=== PATIENT | female | born 1965 | race Caucasian/White ===

== ENCOUNTER 2018-05-14 18:27 | Emergency (ER) | payer OTHER ==
[~2018-05-14 18:27] MED LIST: IOPAMIDOL (ISOVUE-300) 100 ML BTL ONE
[2018-05-14 19:05] LABS: PLATELET COUNT 313 10^3/uL (150-400)
[2018-05-14 19:14] LABS: INR 0.99 (0.83-1.16); PROTIME(PATIENT) 13.3 SEC (12.0-15.0)
--- NOTE | 2018-05-14 19:52 | EDPHY ---
H & P Time Seen by Provider: 05/14/18 18:58 HPI/ROS: HPI Left flank pain. 52-year-old female by private vehicle. She reports that about 3 weeks ago after a viral upper respiratory infection she developed left flank pain. She reports the pain is steadily been getting worse over that period of time. She reports over the last 2-3 days a got significantly worse and she has not been able to sleep the last 1-2 nights because of this pain. She describes it as dull and aching and radiating around to her left mid abdomen and left lower quadrant. She has not had any nausea or vomiting with it. Denies any urinary complaints. No gross hematuria. Denies diarrhea. No bloody or melenic stool. Last bowel movement yesterday. She was evaluated at the [facility] by Dr. Infante. He ordered a CT with and without contrast of her abdomen and pelvis. She was here to obtain at test but the technicians could not obtain an IV. She was therefore sent to the emergency department for evaluation. An IV was easily placed here. We will work her up further and obtain her CT imaging. She endorses. ROS: Constitutional: No fever, no chills. No weakness. Eyes: No discharge. No changes in vision. ENT: No sore throat. No nasal congestion or rhinorrhea. Respiratory: No cough. No shortness of breath. Cardiac: No chest pain, no palpitations. Gastrointestinal: As above, no vomiting, no diarrhea. Genitourinary: No hematuria. No dysuria or increased frequency with urination. Musculoskeletal: As above. No neck pain. No myalgias or arthralgias. Skin: No rashes. Neurological: No headache. No focal weakness or altered sensation. Past medical history: No significant past medical history. She is not on any prescription medications. Social history: Nonsmoker. No alcohol. Here by herself. Physical Exam: General Appearance: Alert, she is not in distress. This patient is responding to questions appropriately and in full sentences. This patient appears well- hydrated and well-nourished. Eyes: Pupils equal and round no pallor or injection. No lid edema, erythema or injection. Respiratory: There are no retractions, lungs are clear to auscultation with good air movement bilaterally. Cardiovascular: Regular rate and rhythm. No murmur. Gastrointestinal: Abdomen is soft and nontender, no masses, bowel sounds normal. No focal tenderness at McBurney's point. No Prater sign. Back exam: No midline thoracic, lumbar, sacral tenderness on palpation. She does have vague pain involving palpation over the left sacroiliac joint. No soft tissue changes. No erythema, edema, warmth or ecchymosis noted. She has a negative same side and cross side straight leg raise test. She is neurologically intact in all myotomes in dermatomes of the bilateral lower extremities. Neurological: Motor sensory function is grossly intact. Cranial nerves are normal. Gait is normal. Skin: Warm and dry, no rashes. Musculoskeletal: Neck is supple and nontender. Vague left-sided CVA tenderness on palpation. No right-sided CVA tenderness on palpation. Extremities are symmetrical. All joints range without pain or impingement. Psychiatric: No agitation. No depression. Database: EKG: Imaging: CT abdomen and pelvis with and without contrast: Essentially negative study. She has significant constipation proximally. No evidence of ureteral stone or other significant pathology. Results were discussed with staff radiologist Dr. Sherman Ndiaye. Procedures: Emergency department course: Triage vital signs reviewed and are normal. IV placed in the emergency department. She was started on IV normal saline with 500 cc to be given over the next hour. She declines pain medication or antiemetics at this time. She will be sent for CT imaging shortly. She endorses. 8:40 p.m., patient re-evaluated. Results of her emergency department workup discussed with her. Her pain on repeat exam he seems to involve her left sacroiliac joint. Otherwise her back exam is noted above is unremarkable. Her repeat neurologic Assessment is nonfocal. She is still complaining of some discomfort. I discussed treatment of her constipation. She has no contraindications to NSAIDs and a normal creatinine today. She will be given 30 mg of IV Toradol. 9:15 p.m., patient re-evaluated. She appears comfortable at this time. Results of her blood work, urinalysis and CT scan discussed further with her. I feel she is safe for discharge and she feels comfortable going home. Repeat neurologic Assessment is nonfocal. I will have her follow up with her primary care physician. I will treat her constipation with magnesium citrate which she will take at home. Return to emergency department precautions were thoroughly reviewed with her. All of her questions were answered. She was discharged from the emergency department in good condition. Differential Diagnosis: The differential diagnosis on this patient includes but is not limited to constipation, pyelonephritis, ureterolithiasis, musculoskeletal pain. This represents a partial list of diagnoses considered. These considerations are based on history, physical exam, past history, reassessment and diagnostic testing. Smoking Status: Never smoked Constitutional: Initial Vital Signs Temperature (C) 36.5 C 05/14/18 18:30 Heart Rate 58 L 05/14/18 18:30 Respiratory Rate 16 05/14/18 18:30 Blood Pressure 129/90 H 05/14/18 18:30 O2 Sat (%) 98 05/14/18 18:30 O2 Delivery Mode Room Air Allergies/Adverse Reactions: No Known Allergies Allergy (Unverified 05/14/18 18:30) Home Medications: Medication Instructions Recorded NK [No Known Home Meds] 05/14/18 Medical Decision Making - Data Points Laboratory Results: Laboratory Results 05/14/18 18:52 05/14/18 18:52 Medications Given: Discontinued Medications Ketorolac Tromethamine (Toradol) 30 mg IVP ONCE ONE Stop: 05/14/18 20:52 Last Admin: 05/14/18 20:56 Dose: 30 mg Magnesium Citrate (Magnesium Citrate) 300 ml PO ONCE ONE Stop: 05/14/18 20:45 Last Admin: 05/14/18 20:53 Dose: 300 ml Point of Care Test Results: Chemistry 05/14/18 18:56 POC Sodium 143 mEq/L mEq/L (135-145) POC Potassium 4.1 mEq/L mEq/L (3.3-5.0) POC Chloride 105 mEq/L mEq/L (97-110) POC BUN 21 mg/dL mg/dL (7-23) POC Creatinine 1.0 mg/dL mg/dL (0.6-1.0) POC Glucose 87 mg/dL mg/dL (70-100) ISTAT H&H 05/14/18 18:56 POC Hgb 15.6 gm/dL gm/dL (12.6-16.3) POC Hct 46 % % (38-47) Departure - Departure Disposition: Home, Routine, Self-Care Clinical Impression: Left flank pain, Constipation, Back pain Condition: Good Instructions: Constipation (ED), High Fiber Diet (ED), Back Pain (ED) Additional Instructions: Read and follow provided instructions. Follow-up with your primary care physician on Thursday for re-evaluation as discussed. Drink contents of magnesium citrate for treatment of constipation. Do this at home and near a bathroom. Ibuprofen dosin mg every 6 hours with meals for the next 3 days only. Take only as needed for pain. Return to the emergency department for worsening pain, fever, vomiting or other serious concerns. Referrals: NONE *PRIMARY CARE P,. [Primary Care Provider] - As per Instructions
[2018-05-14] MEDS ORDERED: MAGNESIUM CITRATE 300 ML BOTTLE PO ONE (20:44)
[2018-05-14] MEDS ORDERED: KETOROLAC 30 MG/1 ML SDV IVP ONE (20:51)
[2018-05-14 21:02] VITALS: BP 123/92
== END 2018-05-14 21:00 | disposition home or self-care (01) ==
LOC: EDSTATUS 18:27
DX: R10.9 Unspecified abdominal pain (principal); K59.00 Constipation, unspecified; M54.9 Dorsalgia, unspecified
CPT/HCPCS: 82435-PO; 82565-PO; 82947-PO; 84132-PO; 84295-PO; 84520-PO; 85014-PO; 96374; J1885; Q9967